=== PATIENT | female | born 1985 | race Hispanic/Latino ===

== ENCOUNTER 2018-03-06 14:43 | Emergency (ER) | payer SELFPAY ==
[2018-03-06] MEDS ORDERED: NA CHLORIDE 0.9% 1,000 ML ONE (15:17)
[2018-03-06 15:40] LABS: Absolute Lymphocytes (CBC) 1.8 K/uL (0.7-4.9); Absolute Monocytes 0.5 K/uL (0.1-1.3); Absolute Neutrophil 6.3 K/uL (1.8-8.0); Basophils % 0.6 % (0-1.3); Eosinophils % 1.6 % (0-4.4); Hematocrit 36.3 % (36.0-45.0); Lymphocytes % 20.5 % (15.3-44.8); MCH 29.3 pg (27.0-35.0); MCV 84.3 fL (80-100); MPV 9.5 fL (7.6-11.3); Monocytes % 5.6 % (3.3-12.3); RBC Red Blood Cell Count 4.31 M/uL (3.86-4.86)
--- NOTE | 2018-03-06 15:48 | RAD REPORT ---
EXAM DESCRIPTION: RAD - Chest Single View - 03/06/2018 3:30 pm CLINICAL HISTORY: COUGH Chest pain. COMPARISON: No comparisons FINDINGS: Portable technique limits examination quality. The lungs are grossly clear. The heart is normal in size. No displaced fractures. IMPRESSION: No acute intrathoracic process suspected.
[2018-03-06 15:50] LABS: ALT/SGPT 30 U/L (12-78); AST/SGOT 18 U/L (15-37); Albumin 3.6 g/dL (3.4-5.0); Alkaline Phosphatase 72 U/L (45-117); BUN Blood Urea Nitrogen 7 mg/dL (7-18); Bicarbonate 27 mmol/L (21-32); Bilirubin Direct < 0.1 mg/dL (0-0.2); Bilirubin Total 0.2 mg/dL (0.2-1.0); Glucose Level 92 mg/dL (74-106); Magnesium 2.1 mg/dL (1.8-2.4); Potassium 3.8 mmol/L (3.5-5.1); Protein, Total 7.1 g/dL (6.4-8.2); Sodium Level 144 mmol/L (136-145)
--- NOTE | 2018-03-06 15:53 | RAD REPORT ---
EXAM DESCRIPTION: CT - Head Brain Wo Cont - 03/06/2018 3:38 pm CLINICAL HISTORY: HEADACHE Drowsiness COMPARISON: No comparisons TECHNIQUE: All CT scans are performed using dose optimization technique as appropriate and may inclu de automated exposure control or mA/KV adjustment according to patient size. FINDINGS: No intracranial hemorrhage, hydrocephalus or extra-axial fluid collection.No areas of brai n edema or evidence of midline shift. Multifocal paranasal sinus fluid levels including both maxillary antra. The calvarium is intact. IMPRESSION: No acute intracranial abnormality. Multifocal acute sinusitis.
[2018-03-06 16:03] LABS: Urine Blood TRACE (NEG); Urine Glucose NEGATIVE (NEG); Urine Protein NEGATIVE (NEG)
[2018-03-06] MEDS ORDERED: KETOROLAC 30 MG/ML INJ ONE (16:17)
--- NOTE | 2018-03-06 16:56 | EDPHYS ---
Physician Documentation [facility] Name: Afshan Shafer Age: 32 yrs Sex: Female : 1985 Arrival Date: 03/06/2018 Time: 14:45 Bed 19 Private MD: ED Physician Carlo Mosqueda HPI: 03/06 15:05 This 32 yrs old Female presents to ER via EMS with complaints of Headache, cp Blurred Vision. 15:05 The patient complains of pain to the forehead. The patient describes the headache as cp aching, constant. Onset: The symptoms/episode began/occurred today. Associated signs and symptoms: Pertinent positives: sinus congestion, sinus tenderness, blurred vision, Pertinent negatives: altered mental status, fever, neck stiffness, paresthesias, Photophobia vomiting, weakness. Severity of symptoms: in the emergency department the pain is unchanged, despite EMS interventions. Historical: - Allergies: 14:49 No Known Allergies; sv - Home Meds: 14:49 Procardia Oral [Active]; Mucinex oral oral [Active]; sv - PMHx: 14:49 Hypertension; sv - PSHx: 14:49 pelvic; sv - Immunization history:: Adult Immunizations up to date. - Social history:: Smoking status: Patient/guardian denies using tobacco, Patient/guardian denies using alcohol. - Ebola Screening: : No symptoms or risks identified at this time. ROS: 15:10 Constitutional: Negative for body aches, chills, fever, poor PO intake. cp 15:10 Eyes: Positive for blurry vision, Negative for discharge, photophobia, redness. cp 15:10 ENT: Positive for sinus congestion, sinus pain, Negative for drainage from ear(s), ear pain, sore throat. 15:10 Neck: Negative for pain with movement, pain at rest, stiffness, tenderness. 15:10 Cardiovascular: Negative for chest pain, palpitations. 15:10 Respiratory: Positive for cough, Negative for shortness of breath, wheezing. 15:10 Abdomen/GI: Negative for abdominal pain, nausea, vomiting, and diarrhea, constipation, black/tarry stool, rectal bleeding. 15:10 : Negative for urinary symptoms. 15:10 Skin: Negative for cellulitis, rash. 15:10 Neuro: Positive for headache, Negative for altered mental status, gait disturbance, speech changes, syncope, near syncope, weakness. 15:10 All other systems are negative. Exam: 15:15 Constitutional: The patient appears in no acute distress, alert, awake, cp non-diaphoretic, non-toxic, well developed, well nourished. 15:15 Head/face: Sinus tenderness, that is moderate, is located over the right frontal cp sinus, left frontal sinus, right maxillary sinus and left maxillary sinus. 15:15 Eyes: Periorbital structures: appear normal, Pupils: equal, round, and reactive to light and accomodation, Extraocular movements: intact throughout, Conjunctiva: normal, no exudate, no injection, Sclera: no appreciated abnormality, Lids and lashes: appear normal, bilaterally. 15:15 ENT: External ear(s): are unremarkable, Ear canal(s): are normal, clear, TM's: bulging, is not appreciated, bilaterally, erythema, is not appreciated, bilaterally, Nose: nasal drainage, that is minimal, and is seen coming from both nares, Mouth: Lips: moist, Oral mucosa: pink and intact, moist, Posterior pharynx: Airway: no evidence of obstruction, patent, Tonsils: are normal in appearance, swelling, is not appreciated, erythema, is not appreciated, exudate, is not appreciated. 15:15 Neck: ROM/movement: is normal, is supple, without pain, no range of motions limitations, no meningismus, no nuchal rigidity, Lymph nodes: no appreciated lymphadenopathy. 15:15 Chest/axilla: Inspection: normal, Palpation: is normal, no crepitus, no tenderness. 15:15 Cardiovascular: Rate: normal, Rhythm: regular, Edema: is not appreciated. 15:15 Respiratory: the patient does not display signs of respiratory distress, Respirations: normal, no use of accessory muscles, no retractions, no splinting, no tachypnea, labored breathing, is not present, Breath sounds: are clear throughout, no decreased breath sounds, no stridor, no wheezing. 15:15 Abdomen/GI: Inspection: abdomen appears normal, Bowel sounds: active, all quadrants, Palpation: abdomen is soft and non-tender, in all quadrants, rebound tenderness, is not appreciated, voluntary guarding, is not appreciated, involuntary guarding, is not appreciated. 15:15 Back: pain, is absent, ROM is normal. 15:15 Skin: cellulitis, is not appreciated, no rash present. 15:15 Neuro: Orientation: to person, place \T\ time. Mentation: is normal, Cerebellar function: is grossly normal, Motor: moves all fours, strength is normal, Sensation: is normal, Gait: is steady. Vital Signs: 14:49 BP 140 / 94; Pulse 83; Resp 20; Temp 97.6; Pulse Ox 100% ; Weight 85.73 kg; Height 5 sv ft. 4 in. (162.56 cm); Pain 5/10; 16:09 BP 141 / 92; Pulse 75; Resp 22; Pulse Ox 100% on R/A; sv 14:49 Body Mass Index 32.44 (85.73 kg, 162.56 cm) sv MDM: 14:57 Patient medically screened. cp 15:00 Differential diagnosis: hypertensive headache, meningitis, meningoencephalitis, cp migraine, sinusitis, subarachnoid bleed, tension headache. 16:55 Data reviewed: vital signs, nurses notes, lab test result(s), radiologic studies, CT cp scan, and as a result, I will discharge patient. 16:55 Counseling: I had a detailed discussion with the patient and/or guardian regarding: the cp historical points, exam findings, and any diagnostic results supporting the discharge/admit diagnosis, lab results, radiology results, the need for outpatient follow up, a family practitioner, to return to the emergency department if symptoms worsen or persist or if there are any questions or concerns that arise at home. 16:55 ED course: VSS. Headache improved with IV fluids and meds. Will discharge to home for cp continued monitoring. 03/06 14:58 Order name: Glucose, Ancillary Testing; Complete Time: 15:01 EDMS 03/06 15: Order name: Basic Metabolic Panel; Complete Time: 16:00 cp 03/06 16:01 Interpretation: Normal except: CL 109; GFR 64; CA 8.2. cp 03/06 15: Order name: CBC with Diff; Complete Time: 16:00 cp 03/06 15: Order name: LFT's; Complete Time: 16:00 cp 03/06 16:00 Interpretation: Normal except: A/G 1.0. cp 03/06 15: Order name: Magnesium; Complete Time: 16:00 cp 03/06 15:06 Order name: Influenza Screen (a \T\ B); Complete Time: 16:00 03/06 16:09 Interpretation: Reviewed. 03/06 15:06 Order name: CT Head Brain wo Cont; Complete Time: 16:00 03/06 16:00 Interpretation: Report reviewed. 03/06 15:06 Order name: XRAY Chest (1 view); Complete Time: 16:00 03/06 15:06 Order name: Cardiac monitoring; Complete Time: 15:18 03/06 15:06 Order name: IV Saline Lock; Complete Time: 15:18 03/06 15:48 Order name: Urine Dipstick--Ancillary (enter results); Complete Time: 16:09 03/06 16:09 Interpretation: Normal except: UBLD TRACE. 03/06 15:48 Order name: Urine --Ancillary (enter results); Complete Time: 16:09 03/06 15:06 Order name: Labs collected and sent; Complete Time: 15:18 03/06 15:06 Order name: O2 Per Protocol; Complete Time: 15:18 03/06 15:06 Order name: O2 Sat Monitoring; Complete Time: 15:18 03/06 15:06 Order name: Urine Dipstick-Ancillary (obtain specimen); Complete Time: 15:38 03/06 15:06 Order name: Urine Test (obtain specimen); Complete Time: 15:38 cp Administered Medications: 15:18 Drug: NS 0.9% 1000 ml Route: IV; Rate: 1 bolus; Site: left antecubital; sv 17:11 Follow up: Response: No adverse reaction; IV Status: Completed infusion; IV Intake: sv 1000ml 16:13 Drug: TORadol 30 mg Route: IVP; Site: left antecubital; sv 17:11 Follow up: Response: No adverse reaction sv Point of Care Testing: Blood Glucose: 14:55 Blood Glucose: 95 mg/dL; sv Ranges: Critical Glucose Levels:Adult <50 mg/dl or >400 mg/dl <40 mg/dl or >180 mg/dl Disposition: 17:30 Chart complete. cp Disposition: 03/06/18 16:56 Discharged to Home. Impression: Acute sinusitis. - Condition is Stable. - Discharge Instructions: Sinusitis, Adult, Form - Excuse from Work, School, or Physical Activity. - Prescriptions for Nasonex 50 mcg/actuation Nasal spray,non- aerosol - spray 2 spray by INTRANASAL route once daily for 14 days; 1 unit. Augmentin 875- 125 mg Oral Tablet - take 1 tablet by ORAL route every 12 hours for 10 days; 20 tablet. - Medication Reconciliation Form, Thank You Letter, Antibiotic Education, Prescription Opioid Use form. - Follow up: Private Physician; When: 1 week; Reason: if symptoms continue. - Problem is new. - Symptoms have improved. Addendum: 03/10/2018 00:50 Co-signature as Attending Physician, Carlo Mosqueda MD. g s Signatures: Dispatcher [employer] EDRenita Chi RN RN Jae Parker PA PA Carlo Manrique MD MD Corrections: (The following items were deleted from the chart) 03/06 16:02 16:00 Normal except: CL 109; GFR 64. cp cp 17:11 16:56 03/06/2018 16:56 Discharged to Home. Impression: Acute sinusitis. Condition is sv Stable. Forms are Medication Reconciliation Form, Thank You Letter, Antibiotic Education, Prescription Opioid Use. Follow up: Private Physician; When: 1 week; Reason: if symptoms continue. Problem is new. Symptoms have improved. cp
--- NOTE | 2018-03-06 16:56 | ER ---
Nurse's Notes [facility] Name: Afshan Shafer Age: 32 yrs Sex: Female : 1985 Arrival Date: 03/06/2018 Time: 14:45 Bed 19 Private MD: Diagnosis: Acute sinusitis Presentation: 03/06 14:37 Presenting complaint: EMS states: was working outside today and started having blurred sv vision and a frontal headache that started about 1100 today. BP 198/120, on arrival to ED 168/110, 20G L AC started. Transition of care: patient was not received from another setting of care. Onset of symptoms was March 06, 2018 at 11:00. Risk Assessment: Do you want to hurt yourself or someone else? Patient reports no desire to harm self or others. Initial Sepsis Screen: Does the patient meet any 2 criteria? No. Patient's initial sepsis screen is negative. Does the patient have a suspected source of infection? No. Patient's initial sepsis screen is negative. Care prior to arrival: IV initiated. 20 GA, in the left antecubital area. 14:37 Method Of Arrival: EMS: [facility] 14:37 Acuity: BARB 3 sv Triage Assessment: 14:40 Headache History: The patient has had previous headaches and this one is similar to previous episodes. General: Appears in no apparent distress. comfortable, well developed, Behavior is calm, cooperative, appropriate for age. Pain: Complains of pain in forehead Pain currently is 5 out of 10 on a pain scale. Quality of pain is described as pressure, Pain began 1100 Is continuous. EENT: No signs and/or symptoms were reported regarding the EENT system. Neuro: Level of Consciousness is awake, alert, obeys commands, Oriented to person, place, time, situation, Moves all extremities. Full function Gait is steady, Speech is normal, Facial symmetry appears normal, Reports blurred vision headache frontal area. Cardiovascular: Patient's skin is warm and dry. Pulses are palpable in right radial artery and left radial artery Rhythm is sinus rhythm. Respiratory: Respiratory effort is even, unlabored, Respiratory pattern is regular, symmetrical. Derm: Skin is pink, warm \T\ dry. Historical: - Allergies: 14:49 No Known Allergies; sv - Home Meds: 14:49 Procardia Oral [Active]; Mucinex oral oral [Active]; sv - PMHx: 14:49 Hypertension; sv - PSHx: 14:49 pelvic; sv - Immunization history:: Adult Immunizations up to date. - Social history:: Smoking status: Patient/guardian denies using tobacco, Patient/guardian denies using alcohol. - Ebola Screening: : No symptoms or risks identified at this time. Screenin:50 Abuse screen: Denies threats or abuse. Denies injuries from another. Nutritional sv screening: No deficits noted. Tuberculosis screening: No symptoms or risk factors identified. Fall Risk None identified. Assessment: 16:13 Reassessment: Patient appears in no apparent distress at this time. No changes from previously documented assessment. Patient and/or family updated on plan of care and expected duration. Pain level reassessed. Patient is alert, oriented x 3, equal unlabored respirations, skin warm/dry/pink. 17:07 Reassessment: Patient appears in no apparent distress at this time. Patient and/or sv family updated on plan of care and expected duration. Pain level reassessed. Patient is alert, oriented x 3, equal unlabored respirations, skin warm/dry/pink. Vital Signs: 14:49 BP 140 / 94; Pulse 83; Resp 20; Temp 97.6; Pulse Ox 100% ; Weight 85.73 kg; Height 5 sv ft. 4 in. (162.56 cm); Pain 5/10; 16:09 BP 141 / 92; Pulse 75; Resp 22; Pulse Ox 100% on R/A; sv 14:49 Body Mass Index 32.44 (85.73 kg, 162.56 cm) sv ED Course: 14:45 Patient arrived in ED. sv 14:46 Renita Bernstein, RN is Primary Nurse. sv 14:48 Triage completed. sv 14:50 Arm band placed on right wrist. sv 14:50 Patient has correct armband on for positive identification. Placed in gown. Bed in low sv position. Call light in reach. playground monitor on. Pulse ox on. NIBP on. Door closed. Head of bed elevated. 14:50 Maintain EMS IV. Dressing intact. Site clean \T\ dry. Gauge \T\ site: 20G L AC. sv 14:57 Jae Spence PA is PHCP. cp 14:57 Carlo Mosqueda MD is Attending Physician. cp 15:30 X-ray completed. Portable x-ray completed in exam room. Patient tolerated procedure mh1 well. 15:30 XRAY Chest (1 view) In Process Unspecified. EDMS 15:38 CT Head Brain wo Cont In Process Unspecified. EDMS 16:15 Awaiting re-evaluation by ER provider. sv 17:07 No provider procedures requiring assistance completed. IV discontinued, intact, sv bleeding controlled, No redness/swelling at site. Pressure dressing applied. Administered Medications: 15:18 Drug: NS 0.9% 1000 ml Route: IV; Rate: 1 bolus; Site: left antecubital; sv 17:11 Follow up: Response: No adverse reaction; IV Status: Completed infusion; IV Intake: sv 1000ml 16:13 Drug: TORadol 30 mg Route: IVP; Site: left antecubital; sv 17:11 Follow up: Response: No adverse reaction sv Point of Care Testing: Blood Glucose: 14:55 Blood Glucose: 95 mg/dL; sv Ranges: Intake: 17:11 IV: 1000ml; Total: 1000ml. sv Outcome: 16:56 Discharge ordered by . cp 17:07 Discharged to home ambulatory. sv 17:07 Condition: stable 17:07 Discharge instructions given to patient, Instructed on discharge instructions, follow up and referral plans. medication usage, Demonstrated understanding of instructions, follow-up care, medications, Prescriptions given X 2. 17:11 Patient left the ED. sv Signatures: Dispatcher [employer] Renita Garcia RN RN Evy Silva 1 Jae Spence PA PA cp
== END 2018-03-06 17:11 | disposition home or self-care (01) ==
LOC: ER 14:43
DX: J01.90 Acute sinusitis, unspecified (principal); I10 Essential (primary) hypertension
CPT/HCPCS: 36415; 70450; 71045; 80048; 80076; 81003; 81025; 82962; 83735; 85025; 87804; 96361; 96374; 99284; J7030